=== PATIENT | male | born 1985 | race Caucasian/White ===

== ENCOUNTER 2019-09-08 15:53 | Emergency (ER) | payer MEDICAID ==
[~2019-09-08] VITALS: Ht 182.9 cm; Wt 99.0 kg
[2019-09-08 16:15] VITALS: BP 151/96
== END 2019-09-08 16:53 | disposition left against medical advice (07) ==
LOC: ER 15:53
DX: T50.991A Poisoning by other drugs, medicaments and biological substances, accidental (unintentional), initial encounter (principal); R00.0 Tachycardia, unspecified; R41.82 Altered mental status, unspecified; Y92.410 Unspecified street and highway as the place of occurrence of the external cause; Z98.890 Other specified postprocedural states; Z71.89 Other specified counseling
CPT/HCPCS: 99283